=== PATIENT | male | born 1980 | race Caucasian/White ===

== ENCOUNTER 2023-01-28 11:45 | Day surgery (SDC) | payer BC ==
[2023-01-27 13:22] VITALS: BMI 37.5
[2023-01-28] MEDS ORDERED: Clindamycin/D5W 900 mg/50 ml Premix Bag ONE (13:11)
[2023-01-28] MEDS ORDERED: Bupivacaine HCl 0.5%/Epinephrine 1:200,000/PF 30 ml Vial ONE ×2 (15:02)
[2023-01-28] MEDS ORDERED: Chlorhexidine Gluconate 15 ML UDCUP SSP ONE (15:03)
[2023-01-28] MEDS ORDERED: Oxymetazoline HCl 0.05% (30 ML BOT) ONE (15:06)
[2023-01-28] MEDS ORDERED: SUGAMMADEX SODIUM 200 MG/2 ML VIAL ONE (15:06)
[2023-01-28] MEDS ORDERED: Lidocaine 4% Topical Sol 50 ML BOT ONE (15:06)
[2023-01-28] MEDS ORDERED: Succinylcholine 200 MG/10 ml SYRINGE FS ONE (15:18)
[2023-01-28] MEDS ORDERED: PROPOFOL 200 MG/20 ML VIAL ONE (15:18)
[2023-01-28] MEDS ORDERED: Dexamethasone 20 MG/5 ML VIAL ONE (15:18)
[2023-01-28] MEDS ORDERED: Metoclopramide HCl 10 MG/2 ML VIAL ONE (15:18)
[2023-01-28] MEDS ORDERED: Ondansetron PF 4 MG/2 ML Vial ONE (15:18)
[2023-01-28] MEDS ORDERED: Lidocaine 1% PF 5 ML VIAL ONE (15:18)
[2023-01-28] MEDS ORDERED: Rocuronium Bromide 10 MG/ML (10ML VIAL) ONE (15:18)
[2023-01-28] MEDS ORDERED: fentaNYL 50 mcg/mL 1 mL Vial ONE ×4 (15:21→18:03)
== END 2023-01-28 19:17 | disposition home or self-care (01) ==
LOC: SDC 11:45
PROVIDERS: ATTEND Dentist Oral and Maxillofacial Surgery
PROC: 0NSV04Z Reposition Left Mandible with Internal Fixation Device, Open Approach (ICD-10-PCS; principal; 2023-01-28)
DX: S02.652B Fracture of angle of left mandible, initial encounter for open fracture (principal); S03.2XXA Dislocation of tooth, initial encounter; I10 Essential (primary) hypertension; E78.5 Hyperlipidemia, unspecified; Z79.899 Other long term (current) drug therapy; Y04.0XXA Assault by unarmed brawl or fight, initial encounter
CPT/HCPCS: C1713; J1100; J2405; J2704; J2765; J3010; J3490